=== PATIENT | female | born 1985 | race Two or more races ===

== ENCOUNTER 2021-03-09 09:56 | Emergency (ER) | payer OTHER ==
[~2021-03-09] VITALS: Ht 142.2 cm; Wt 45.0 kg
[2021-03-09 11:29] VITALS: BP 117/70
== END 2021-03-09 11:55 ==
LOC: EMS 09:56
DX: Z11.1 Encounter for screening for respiratory tuberculosis (principal)
CPT/HCPCS: 71045; 99283